=== PATIENT | female | born 1950 | race Caucasian/White ===

== ENCOUNTER → 2016-06-02 | Outpatient (CLI) | payer BC ==
[~2016-06-02] MED LIST: ASPIR-TRIN325 MG PO; COQ-1030 MG PO; CRESTOR10 MG PO; DICYCLOMINE HCL20 MG PO; FLEXERIL 10 MG10 MG PO; FLONASE 0.05% N16 GM; GLUCOPHAGE500 MG PO; HYDROCHLOROTHIA25 MG PO; LISINOPRIL40 MG PO; MOBIC15 MG PO; NEURONTIN 300300 MG PO; NEXIUM40 MG PO; NORVASC 5 MG TAB5 MG PO; PROAIR HFA8.5 GM INH; PROMETHAZINE HC25 M1 PO; SYNTHROID75 MCG PO; XYZAL5 MG PO; ZANAFLEX 4 MG TA4 MG PO; ZANTAC150 MG PO
[2016-06-02 09:37] LABS: HEMOGLOBIN 14.2 gm/dl (12.3-15.3); RED BLOOD COUNT 4.23 M/UL (4.00-5.10); WHITE BLOOD COUNT 10.6 K/UL (4.5-11.0)
[2016-06-02 09:57] LABS: BUN/CREATININE RATIO 17 (0-10)
== END ==
LOC: MAMO 05-28 09:00
PROVIDERS: Nurse Practitioner Family
DX: Z12.31 Encounter for screening mammogram for malignant neoplasm of breast (principal); M62.838 Other muscle spasm; R73.9 Hyperglycemia, unspecified; I10 Essential (primary) hypertension; E03.9 Hypothyroidism, unspecified; E78.5 Hyperlipidemia, unspecified; R53.83 Other fatigue
CPT/HCPCS: 80053; 80061; 82043; 82570; 82607; 83036; 83735; 84439; 84443; 84630; 85025; G0202